=== PATIENT | female | born 1975 | race Asian ===

== ENCOUNTER 2021-01-23 10:49 | Day surgery (SDC) | payer SELFPAY ==
[~2021-01-23] VITALS: Ht 149.9 cm; Wt 44.0 kg
[~2021-01-23 10:49] MED LIST: HYDROmorphone 2 MG/ML VIAL IVP PRN; IV RINGERS,LACTATED 1000ML 1,000 ML IV SCH; MULT-245 PO; PROCHLORPERAZINE 10 MG/2 ML VIAL. IVP PRN; SCOPOLAMINE 1.5MG PATCH. TD ONE; ceFAZolin SODIUM IV Push 1 GM VIAL. IVP PRN; fentaNYL PF VIAL 100 MCG/2 ML VIAL IVP PRN
[2021-01-23 11:21] VITALS: BP 116/62
[2021-01-23] MEDS ORDERED: BUPIVACAINE-EPI 0.25%-1:200000 MPF 30 ML VIAL. ONE (11:52)
[2021-01-23] MEDS ORDERED: fentaNYL PF VIAL 100 MCG/2 ML VIAL ONE ×2 (12:00→13:24)
[2021-01-23] MEDS ORDERED: LIDOCAINE 2% PF 5 ML VIAL. ONE (12:00)
[2021-01-23] MEDS ORDERED: MIDAZOLAM HCL/PF 2 MG/2 ML VIAL. ONE (12:00)
[2021-01-23] MEDS ORDERED: ceFAZolin SODIUM IV Push 1 GM VIAL. IVP ONE (12:36)
[2021-01-23] MEDS ORDERED: GENTAMICIN SULFATE 80 MG in IV DEXTROSE 5% 100ML 100 ML IV ONE (13:00)
[2021-01-23] MEDS ORDERED: SEVOFLURANE 61 TO 120 MINUTES. IH ONE (13:19)
[2021-01-23] MEDS ORDERED: PROPOFOL 10 MG/ML (20ML) VIAL. IV ONE (13:19)
[2021-01-23] MEDS ORDERED: ONDANSETRON PF 4 MG/2 ML VIAL. ONE (13:19)
[2021-01-23] MEDS ORDERED: DEXAMETHASONE SOD PHOS 4 MG/ML VIAL ONE (13:19)
[2021-01-23] MEDS ORDERED: PHENYLEPHRINE in 0.9% NACL PF 1 MG/10 ML SYRINGE. IV ONE (13:20)
[2021-01-23] MEDS ORDERED: PROCHLORPERAZINE 10 MG/2 ML VIAL. ONE (15:02)
[2021-01-23] MEDS ORDERED: MORPHINE SULFATE 2 MG/ML INJ. ONE ×3 (15:02→15:55)
[2021-01-23] MEDS: MORPHINE SULFATE 2 MG/ML INJ. IVP PRN ×6 (15:05→16:11)
[2021-01-23] MEDS ORDERED: HYDROcodone/APAP 5/325MG 1 TAB TABLET ONE (15:50)
[2021-01-23] MEDS ORDERED: HYDROcodone/APAP 5/325MG 1 TAB TABLET PO ONE (16:00)
[2021-01-23 16:20] VITALS: BP 126/70
--- NOTE | 2021-01-23 17:34 | PDOC4 ---
OPERATIVE NOTE Date: Date: Jan 23, 2021 Pre-Op Diagnosis: Hypomastia Post-Op Diagnosis: Same Procedure Performed: Bilateral breast augmentation with silicone implants, dual plane 1 Operative time: 12:56 PM2:52 PM Implants: Right: 325 cc silicone high-profile implant reference #[id number] , lot #[id number], serial #[id number] Left: 300 cc silicone high-profile implant reference#[id number] , lot #[id number], serial #[id number] Procedure The patient was seen in the preoperative holding area. The preoperative photos and ASBS consent for breast augmentation with silicone implants were reviewed with the patient. The risks and benefits were again reviewed in detail including the risks of bruising, numbing, capsular contracture, infection, hematoma, seroma, tissue necrosis and poor healing, implant rupture, implant rippling, implant malposition, double bubble deformity, and anaplastic large cell lymphoma. The patient's preoperative photos were reviewed and again illustrated that the left breast had a slightly larger volume with the left nipple sitting approximately 1 cm higher than the right nipple. We discussed a possible crescentic periareolar lift in the office if this persisted postoperatively. Preoperative markings were made with the patient in the standing position. These markings were discussed with the patient. The planned incision, implant type, location, and approximate size were again confirmed with the patient who understood and agreed with the operative plan. The patient was taken to the operating room and placed in the supine position on the OR table. Bony prominences were appropriately padded. The arms were placed in 90 degrees of abduction and SCDs were applied to both extremities and working prior to the induction of anesthesia. After draping a timeout was performed confirming the correct patient and procedure. Surgical prepping and draping was then performed using DuraPrep in the usual sterile fashion. A sterile Ioban film was placed over the surgical field including the nipples. An opening was made overlying the proposed inframammary incision. An 4.5 cm incision was made with a #15 scalpel along the inframammary fold. This incision was extended through the dermis with Bovie cautery. The Bovie was used to extend the incision in the superior direction down to the Antoni's fascia. The lateral border of the pectoralis muscle was identified and the subpectoral space was entered. A right angle retractor was used to retract the muscle and breast tissue superiorly. An extended electrocautery tip was used to transect the inferior insertions of the pectoralis major muscle approximately 1 cm anterior to the chest wall, cauterizing perforators as they were encountered. The inferior insertion of the the pectoralis major muscle were transected with the dissection ending 1.5 cm from the sternal insertions. Minimal blunt dissection was performed laterally to widen the implant pocket. Hemostasis was confirmed. The pocket was irrigated with a diluted Betadine solution. A 300 cc implant sizer was placed in the newly created pocket and the patient was placed in a seated position to evaluate the breast shape. Based on the patient's preoperative wishes the shape was satisfactory. The patient was replaced back to the supine position and attention was turned to the left breast where an identical procedure was performed. After pocket dissection was completed on both sides the pockets were irrigated, hemostasis was achieved with electrocautery, and the field was reprepped with Betadine. Surgical gloves were changed prior to the handling of each implant. The silicone implants were opened and bathed in a diluted Betadine and antibiotic solution consisting of 1 g of Ancef, 80 mg of gentamicin, 500 cc saline, and 4 ounces Betadine. Next the implant was inserted into the subpectoral space and a minimal touch technique. The breasts were then evaluated for implant position and symmetry in the sitting and supine positions from multiple angles. Once satisfactory implant position and pocket shape were achieved the breast fascia was approximated with 2-0 Vicryl suture followed by deep dermal approximation with 3-0 Vicryl suture and a subcuticular running stitch using 4-0 Prolene suture. Steri-Strips were placed over the incisions followed by gauze and Tegaderm. A surgical support bra was placed on the patient. The patient was awakened uneventfully from anesthesia and transferred to a stretcher. She was tra nsported to the recovery room in stable condition. She tolerated the procedure well and there were no immediate complications. All sponge and needle counts were correct. Surgeon: Soila Armstrong MD Anesthesia Type: General LMA anesthesia Blood Loss: 50 cc Specimans Obtained: None Findings: See report below Complications: None SOILA ARMSTRONG MD Jan 23, 2021 17:34
== END 2021-01-23 17:30 | disposition home or self-care (01) ==
LOC: SURG 10:49
PROVIDERS: ATTEND Plastic Surgery
DX: N64.82 Hypoplasia of breast (principal); Z79.899 Other long term (current) drug therapy; Z72.89 Other problems related to lifestyle; Z20.822 Contact with and (suspected) exposure to COVID-19
CPT/HCPCS: 19325; 81025; 87426; A4209; A4364; A4930; A6254; A6258; J0690; J0780; J1100; J1580; J2250; J2270; J2370; J2405; J2704; J3010; J3490; J7060; A4452